=== PATIENT | female | born 1970 | race African-American/Black ===

== ENCOUNTER 2016-10-20 00:42 | Inpatient (IN) | payer OTHER ==
--- NOTE | 2016-10-20 01:30 | PDOC ---
[id number] No Limitations - History of Present Illness Initial Comments: 10/20/16 02:28 The patient is a 44 year old female with past medical history of diabetes and chronic back pain from injury who presents to the emergency department with complaints of an abscess on her left inner thigh. Patient states that the abscess is draining puss since 2 days ago and she presents today with worsening pain and swelling. Patient reports foul smell from the abscess. She denies any fever. <Alice Galvan - Last Filed: 10/20/16 04:04> <Pam Canseco - Last Filed: 10/20/16 05:46> - General Chief Complaint: Wound Stated Complaint: ABSCESS BOIL Time Seen by Provider: 10/20/16 01:27 Past History <Alice Galvan - Last Filed: 10/20/16 04:04> - Past Medical History Diabetes: Yes (iddm) Hypercholesterolemia: Yes - Psycho/Social/Smoking Cessation Hx Anxiety: No Suicidal Ideation: No Smoking Status: Yes Smoking History: Current every day smoker Have you smoked in the past 12 months: Yes Number of Cigarettes Smoked Daily: 10 Information on smoking cessation initiated: No 'Breaking Loose' booklet given: 03/16/16 Hx Alcohol Use: No Drug/Substance Use Hx: No Substance Use Type: None <Pam Canseoc - Last Filed: 10/20/16 05:46> - Past Medical History Allergies/Adverse Reactions: Allergies Allergy/AdvReac Type Severity Reaction Status Date / Time No Known Allergies Allergy Verified 10/20/16 01:03 Home Medications: Ambulatory Orders Metformin HCl 500 mg PO BID 04/18/15 Insulin Lispro [Humalog] 6 unit SQ DAILY PRN 10/20/16 Oxycodone HCl 30 mg PO BID 10/20/16 Trulicity 70 mg PO DAILY 10/20/16 Review of Systems - Review of Systems Able to Perform ROS?: Yes Comments:: 10/20/16 02:28 GENERAL/CONSTITUTIONAL: No fever or chills. No weakness. HEAD, EYES, EARS, NOSE AND THROAT: No change in vision. No ear pain or discharge. No sore throat. CARDIOVASCULAR: No chest pain or shortness of breath. RESPIRATORY: No cough, wheezing, or hemoptysis. GASTROINTESTINAL: No nausea, vomiting, diarrhea or constipation. GENITOURINARY: No dysuria, frequency, or change in urination. MUSCULOSKELETAL: No joint or muscle swelling or pain. No neck or back pain. SKIN: No rash NEUROLOGIC: No headache, vertigo, loss of consciousness, or change in strength/ sensation. ENDOCRINE: No increased thirst. No abnormal weight change. HEMATOLOGIC/LYMPHATIC: No anemia, easy bleeding, or history of blood clots. ALLERGIC/IMMUNOLOGIC: (+)abscess of the upper inner left thigh. No hives or skin allergy. <lAice Galvan - Last Filed: 10/20/16 04:04> *Physical Exam - Vital Signs Last Vital Signs Temp Pulse Resp BP Pulse Ox 99.0 F 95 H 14 106/60 100 10/20/16 02:13 10/20/16 01:04 10/20/16 01:04 10/20/16 01:04 10/20/16 01:04 - Physical Exam Comments: 10/20/16 02:29 GENERAL: Awake, alert, and fully oriented, in no acute distress HEAD: No signs of trauma EYES: PERRLA, EOMI, sclera anicteric, conjunctiva clear ENT: Auricles normal inspection, hearing grossly normal, nares patent, oropharynx clear without exudates. Moist mucosa NECK: Normal ROM, supple, no lymphadenopathy, JVD, or masses LUNGS: Breath sounds equal, clear to auscultation bilaterally. No wheezes, and no crackles HEART: Regular rate and rhythm, normal S1 and S2, no murmurs, rubs or gallops ABDOMEN: Soft, nontender, normoactive bowel sounds. No guarding, no rebound. No masses EXTREMITIES: Normal range of motion, no edema. No clubbing or cyanosis. No cords, erythema, or tenderness NEUROLOGICAL: Cranial nerves II through XII grossly intact. Normal speech, normal gait SKIN: (+)abscess on the left upper inner thigh 7in x 5 in, foul odor. Warm, Dry , normal turgor, no rashes noted. <Alice Galvan - Last Filed: 10/20/16 04:04> - Vital Signs Last Vital Signs Temp Pulse Resp BP Pulse Ox 95 H 14 106/60 100 10/20/16 01:04 10/20/16 01:04 10/20/16 01:04 10/20/16 01:04 <Pam Canseco - Last Filed: 10/20/16 05:46> ED Treatment Course - LABORATORY CBC & Chemistry Diagram: 10/20/16 02:55 10/20/16 02:55 <Alice Galvan - Last Filed: 10/20/16 04:04> - LABORATORY CBC & Chemistry Diagram: 10/20/16 02:55 10/20/16 02:55 <Pam Canseco - Last Filed: 10/20/16 05:46> Medical Decision Making - Medical Decision Making 10/20/16 03:51 Pt comes with a large abscess in her right inner thigh. She has no fever, but she is a diabetic and the abscess has 2 heads and one is draining pus. Together they are 7 inches x 5 inches total. She states that she always gets hidradenitis in her armpits, but never on her leg/groin. She has no other complaints. The abscess is large and is foul smelling. Abscess is too large for me to I+D in the ER. SHe will be treated with abx IV and she will be admitted to the hospitalist for an I+D to be done by surgery. 10/20/16 05:46 Pt will go for leg CTA to elucidate the dimensions and depth of the abscesses. From there pt will go straight to her bed on the med/surg floor. <Pma Canseco - Last Filed: 10/20/16 05:46> *DC/Admit/Observation/Transfer - Attestations Scribe Attestion: 10/20/16 02:30 Documentation prepared by FLORES Howell, acting as medical van driver for Pam Canseco MD. <Alice Galvan - Last Filed: 10/20/16 04:04> - Discharge Dispostion Admit: Yes <Pam Canseco - Last Filed: 10/20/16 05:46> Diagnosis at time of Disposition: Skin abscess, Diabetes - Referrals Referrals: Shanell Joseph [Primary Care Provider] -
[2016-10-20] MEDS ORDERED: PIPERACILLIN/TAZOB 4.5 GM 4.5 GM in DEXTROSE 5%-WATER - 100 ML IVPB ONE (02:28)
[2016-10-20] MEDS ORDERED: VANCOMYCIN 1,000 MG in DEXTROSE 5%-WATER - 250 ML IVPB ONE (02:29)
[2016-10-20] MEDS ORDERED: morphine CARPU-JECT 2 MG/1 ML DISP.SYRIN IVPUSH ONE (02:57)
[2016-10-20 03:00] LABS: BASOPHIL 0.5 % (0-2.0); EOSINOPHIL 1.3 % (0-4.5); MCH 30.8 pg (25.7-33.7); MCHC 32.3 g/dl (32.0-36.0); MEAN CELL VOLUME 95.5 fl (80-96); MEAN PLT VOLUME 9.5 fl (7.5-11.1); NEUTROPHILS 75.3 % (42.8-82.8); PLATELET COUNT 313 K/MM3 (134-434); RDW 16.4 % (11.6-15.6); WHITE BLOOD COUNT 11.9 K/mm3 (4.0-10.0)
[2016-10-20] MEDS ORDERED: morphine CARPU-JECT 2 MG/1 ML DISP.SYRIN ONE (03:03)
[2016-10-20 03:23] LABS: INR 1.21 (0.82-1.09); PROTHROMBIN TIME (PATIENT) 13.4 SEC (9.98-11.88)
[2016-10-20 03:31] LABS: ALBUMIN 3.4 g/dl (3.4-5.0); ALK PHOS 108 U/L (45-117); ANION GAP 13 (8-16); BILIRUBIN,TOTAL 0.3 mg/dL (0.2-1.0); CALCIUM 9.1 mg/dL (8.5-10.1); CO2 27 mmol/L (21-32); COCKROFT - GAULT 101.7875; CREATININE 0.9 mg/dL (0.55-1.02); GLUCOSE,RANDOM 222 mg/dL (74-106); SGOT/AST 18 U/L (15-37); SGPT/ALT 20 U/L (12-78); TOT PROT 7.4 g/dl (6.4-8.2)
[2016-10-20] MEDS ORDERED: SODIUM CHLORIDE 0.9% 500 ML INFUS.BAG IV ONE (03:56)
--- NOTE | 2016-10-20 04:06 | PN ---
Teaching Attending Note Name of Resident: Jairo Dunn ATTENDING PHYSICIAN STATEMENT I saw and evaluated the patient. I reviewed the resident's note and discussed the case with the resident. I agree with the resident's findings and plan as documented. SUBJECTIVE: 46 yo F with pmhx of diabetes, and chronic back pain who presents with abcess of left inner thigh. Notes abcess started draining 2 days ago. Stated she had chills yesterday. No Nausea or Vomiting. Had 2 episodes of diarrhea yesterday. OBJECTIVE: Physical: VS: Vital Signs Period Temp Pulse Resp BP Sys/Keller Pulse Ox Last 24 Hr 99.0 F 95 14 106/60 100 GEN: NAD, Resting in bed HEENT: NCAT, PERRL CARD: RRR S1, S2 RESP: CTAB ABD: BS X4, Mild suprapubic tenderness to palpation EXT: L thigh 5X6 abcess with tendeness and warmth on palpation, with open ulceration on inner groin. Surrounding erythema, pulses intact. CBCD WBC 11.9 K/mm3 (4.0-10.0) H 10/20/16 02:55 RBC 4.13 M/mm3 (3.60-5.2) 10/20/16 02:55 Hgb 12.7 GM/dL (10.7-15.3) 10/20/16 02:55 Hct 39.4 % (32.4-45.2) 10/20/16 02:55 MCV 95.5 fl (80-96) 10/20/16 02:55 MCHC 32.3 g/dl (32.0-36.0) 10/20/16 02:55 RDW 16.4 % (11.6-15.6) H 10/20/16 02:55 Plt Count 313 K/MM3 (134-434) 10/20/16 02:55 MPV 9.5 fl (7.5-11.1) 10/20/16 02:55 CMP Sodium 138 mmol/L (136-145) 10/20/16 02:55 Potassium 4.1 mmol/L (3.5-5.1) 10/20/16 02:55 Chloride 98 mmol/L (98-107) 10/20/16 02:55 Carbon Dioxide 27 mmol/L (21-32) 10/20/16 02:55 Anion Gap 13 (8-16) 10/20/16 02:55 BUN 15 mg/dL (7-18) 10/20/16 02:55 Creatinine 0.9 mg/dL (0.55-1.02) 10/20/16 02:55 Creat Clearance w eGFR > 60 (>60) 10/20/16 02:55 Random Glucose 222 mg/dL (74-106) H 10/20/16 02:55 Calcium 9.1 mg/dL (8.5-10.1) 10/20/16 02:55 Total Bilirubin 0.3 mg/dL (0.2-1.0) 10/20/16 02:55 AST 18 U/L (15-37) 10/20/16 02:55 ALT 20 U/L (12-78) 10/20/16 02:55 Alkaline Phosphatase 108 U/L (45-117) 10/20/16 02:55 Total Protein 7.4 g/dl (6.4-8.2) 10/20/16 02:55 Albumin 3.4 g/dl (3.4-5.0) 10/20/16 02:55 CT EXT: Pending ASSESSMENT AND PLAN: 46 F with hx of DM, Chronic low back pain who presents with L. Thigh abcess 1.) L. Thigh Abcess - S/P Vanco/Zosyn in ED - FU CT Results - ID consult - Sx consult for possible drainage - C/W abx - Wound/blood cx - Type and Screen - Coags 2.) DM - Chk. A1C - Hold Po meds - RAISS - FS Q 4h 4.) DVt Ppx - SCD Place in Med-Sx
[2016-10-20] MEDS ORDERED: INSULIN SLIDING SCALE (NOVOLOG) 1 VIAL SQ SCH (04:15)
[2016-10-20] MEDS ORDERED: INSULIN (NOVOLOG) ASPART 100 UNITS/ML 10ML VIAL ONE (04:43)
--- NOTE | 2016-10-20 04:52 | HP ---
CHIEF COMPLAINT: Draining right inner thigh abscess PCP: Susy Prescott HISTORY OF PRESENT ILLNESS: 46 year old male with pmh of uncontrolled diabetes, recurrent skin abscesses presented to ED with right inner thigh abscess for 5 days that have been worsening and draining or the past 2 days. The abscess sis very painful, 10/10, sharp, worsened with movement, improves with morphine. Pt complained of discomfort urinating and she unable to bend down because of abscess. Pt also complaine dof difficulty walking because of the abscess. Pt does not know that the abscess started, no pimple, no new lotion, soap, no shaving. Pt also complained of fever and chills at home, no n/v, no dizziness or confusion. No right lower ext numbness, tingling, weakness or swelling. ER course was notable for: (1) WBC 11.9 (2) Vancomycin, Zosyn Recent Travel: none PAST MEDICAL HISTORY: uncontrolled diabetes, recurrent skin abscesses, UTI, Chronic back pain PAST SURGICAL HISTORY: C- section Social History: Smoking: smoked for 25 years, 1/3 of pack per day Alcohol: denies Drugs: denies Family History: Denies Allergies No Known Allergies Allergy (Verified 10/20/16 01:03) HOME MEDICATIONS: Home Medications Medication Instructions Recorded Metformin HCl 500 mg PO BID 04/18/15 Insulin Lispro [Humalog] 6 unit SQ DAILY PRN 10/20/16 Oxycodone HCl 30 mg PO BID 10/20/16 Trulicity 70 mg PO DAILY 10/20/16 REVIEW OF SYSTEMS CONSTITUTIONAL: fever, chills Absent: fdiaphoresis, generalized weakness, malaise, loss of appetite, weight change HEENT: Absent: rhinorrhea, nasal congestion, throat pain, throat swelling, difficulty swallowing, mouth swelling, ear pain, eye pain, visual changes CARDIOVASCULAR: Absent: chest pain, syncope, palpitations, irregular heart rate, lightheadedness , peripheral edema RESPIRATORY: Absent: cough, shortness of breath, dyspnea with exertion, orthopnea, wheezing, stridor, hemoptysis GASTROINTESTINAL: Absent: abdominal pain, abdominal distension, nausea, vomiting, diarrhea, constipation, melena, hematochezia GENITOURINARY: some discomfort and incontinence rt to pain from abscess Absent: dysuria, frequency, urgency, hesitancy, hematuria, flank pain, genital pain MUSCULOSKELETAL: Absent: myalgia, arthralgia, joint swelling, back pain, neck pain SKIN: right thigh draining abscess and pain Absent: rash, itching, pallor HEMATOLOGIC/IMMUNOLOGIC: Absent: easy bleeding, easy bruising, lymphadenopathy, frequent infections ENDOCRINE: Absent: unexplained weight gain, unexplained weight loss, heat intolerance, cold intolerance NEUROLOGIC: Absent: headache, focal weakness or paresthesias, dizziness, unsteady gait, seizure, mental status changes, bladder or bowel incontinence PSYCHIATRIC: Absent: anxiety, depression, suicidal or homicidal ideation, hallucinations. PHYSICAL EXAMINATION Vital Signs - 24 hr 10/20/16 10/20/16 01:04 02:13 Temperature 99.0 F Pulse Rate 95 H Respiratory 14 Rate Blood Pressure 106/60 O2 Sat by Pulse 100 Oximetry (%) GENERAL: Awake, alert, and fully oriented, in no acute distress. HEAD: Normal with no signs of trauma. EYES: Pupils equal, round and reactive to light, extraocular movements intact, sclera anicteric, conjunctiva clear. No lid lag. EARS, NOSE, THROAT: Ears normal, nares patent, oropharynx clear without exudates. Moist mucous membranes. NECK: Normal range of motion, supple without lymphadenopathy, JVD, or masses. LUNGS: Breath sounds equal, clear to auscultation bilaterally. No wheezes, and no crackles. No accessory muscle use. HEART: Regular rate and rhythm, normal S1 and S2 without murmur, rub or gallop. ABDOMEN: Soft, supra pubic tenderness, not distended, normoactive bowel sounds, no guarding, no rebound, no masses. No hepatomegaly or splenomegaly. MUSCULOSKELETAL: Normal range of motion at all joints. No bony deformities or tenderness. No CVA tenderness. UPPER EXTREMITIES: 2+ pulses, warm, well-perfused. No cyanosis. No clubbing. No peripheral edema. LOWER EXTREMITIES: 2+ pulses, warm, well-perfused. No calf tenderness. No peripheral edema. NEUROLOGICAL: Cranial nerves II-XII intact. Normal speech. Normal gait. PSYCHIATRIC: Cooperative. Good eye contact. Appropriate mood and affect. SKIN: Warm, dry, normal turgor, no rashes or lesions noted, normal capillary refill. right inner thight with a 5*6 abscess draining serosanguinous fluid with surrounding area of erythema, tenderness and induration. Laboratory Results - last 24 hr 10/20/16 10/20/16 10/20/16 02:47 02:55 02:55 WBC 11.9 H RBC 4.13 Hgb 12.7 Hct 39.4 MCV 95.5 MCHC 32.3 RDW 16.4 H Plt Count 313 MPV 9.5 Neutrophils % 75.3 Lymphocytes % 15.3 Monocytes % 7.6 Eosinophils % 1.3 Basophils % 0.5 INR 1.21 H PTT (Actin FS) Sodium 138 Potassium 4.1 Chloride 98 Carbon Dioxide 27 Anion Gap 13 BUN 15 Creatinine 0.9 Creat Clearance w eGFR > 60 Random Glucose 222 H Calcium 9.1 Total Bilirubin 0.3 AST 18 ALT 20 Alkaline Phosphatase 108 Total Protein 7.4 Albumin 3.4 10/20/16 02:55 WBC RBC Hgb Hct MCV MCHC RDW Plt Count MPV Neutrophils % Lymphocytes % Monocytes % Eosinophils % Basophils % INR PTT (Actin FS) 30.4 Sodium Potassium Chloride Carbon Dioxide Anion Gap BUN Creatinine Creat Clearance w eGFR Random Glucose Calcium Total Bilirubin AST ALT Alkaline Phosphatase Total Protein Albumin CBC, BMP 10/20/16 02:55 10/20/16 02:55 ASSESSMENT/PLAN: 46 year old male with pmh of uncontrolled diabetes, recurrent skin abscesses presented to ED with right inner thigh abscess for 5 days that have been worsening and draining or the past 2 days Sepsis from Right thigh soft tissue draining abscess complained of subjective fever and chills at home WBC 11.9, HR 95 and source of infection CBC Lactic acid ESR Type and screen wound culture Blood culture f/u CT lower ext continue vanco IV continue Zosyn IV Morphine for pain Zofran PRN ID consult Dr Gonzales Surgery consult R/o UTI urinary urgency, discomfort, suprapubic tenderness UA Uncontrolled Diabetes BGM ACHS HgbA1C Novolog sliding scale FEN Fluid: NS at 100ml/h Electrolytes: chemistry Nutrition: NPO DVT prophylaxis SCD Disposition: admit to [facility] Visit type - Emergency Visit Emergency Visit: Yes Care time: The patient presented to the Emergency Department on the above date and was hospitalized for further evaluation of their emergent condition. - New Patient This patient is new to me today: Yes Date on this admission: 10/20/16 - Critical Care Critical Care patient: No
[2016-10-20] MEDS ORDERED: SODIUM CHLORIDE 1,000 ML IV SCH (05:00)
[2016-10-20] MEDS ORDERED: morphine CARPU-JECT 4 MG/1 ML DISP.SYRIN IVPUSH PRN (05:34)
[2016-10-20 07:07] VITALS: BMI 31.6
[2016-10-20] MEDS: INSULIN SLIDING SCALE (NOVOLOG) 1 VIAL SQ SCH ×5 (08:26→22:13)
[2016-10-20] MEDS ORDERED: morphine CARPU-JECT 2 MG/1 ML DISP.SYRIN IVPUSH PRN ×2 (09:20→12:37)
--- NOTE | 2016-10-20 10:24 | PN ---
Progress Note, Physician Chief Complaint: ID Full note dictated - Current Medication List Current Medications: Active Medications Sodium Chloride (Normal Saline -) 1,000 mls @ 100 mls/hr IV ASDIR CECIL Last Admin: 10/20/16 09:28 Dose: 100 mls/hr Insulin Aspart (Novolog Vial Sliding Scale -) 1 vial SQ Q4HPO [facility] PRN Reason: Protocol Last Admin: 10/20/16 08:26 Dose: Not Given Morphine Sulfate (Morphine Injection -) 2 mg IVPUSH Q4H PRN PRN Reason: PAIN Piperacillin Sod/Tazobactam Sod (Zosyn 3.375gm Ivpb (Pre-Docked)) 3.375 gm IVPB ONCE ONE Stop: 10/20/16 12:01 - Objective Vital Signs: Vital Signs Temperature 99 F 10/20/16 06:55 Pulse Rate 84 10/20/16 06:55 Respiratory Rate 20 10/20/16 06:55 Blood Pressure 149/69 10/20/16 06:55 O2 Sat by Pulse Oximetry (%) 97 10/20/16 05:28 Integumentary: Yes: Other (Perineal collection draining pus painful to touch) Labs: INR, PTT INR 1.21 (0.82-1.09) H 10/20/16 02:47 Problem List - Problems (1) Diabetes Code(s): E11.9 - TYPE 2 DIABETES MELLITUS WITHOUT COMPLICATIONS (2) Skin abscess Code(s): L02.91 - CUTANEOUS ABSCESS, UNSPECIFIED (3) Hydradenitis Code(s): L73.2 - HIDRADENITIS SUPPURATIVA Assessment/Plan Microbiology Laboratory Tests 10/20/16 10/20/16 10/20/16 02:55 02:55 08:00 WBC 11.9 H RBC 4.13 Plt Count 313 ESR Pending Creatinine 0.9 Assessment Thigh abscess draining pus Dm Hydradenitis Plan I sent wound c/ s now Vanco Zosyn CRP Surgicl consult HIV testing Janet CARBALLO
--- NOTE | 2016-10-20 11:32 | CONS ---
DATE OF CONSULTATION: HISTORY: This is a 46-year-old diabetic female who I am asked to see for an abscess of her left medial thigh. This has been present for about 5 days, and she has no idea how it evolved. She did give a history of having uncontrolled diabetes as well as axillary hidradenitis several years ago. She complained of fever and chills at home but here had no significant fever. Her admitting white count was 11.9. She lives with her son and states that she was HIV tested negative several years ago. She does not use drugs and has no other significant past medical history other than her diabetes and section. MEDICATIONS: At home, metformin, insulin, oxycodone, Trulicity. ALLERGIES: None known. SOCIAL HISTORY: Smoker 1/3 of a pack per day. Denies substance abuse. FAMILY HISTORY: Reviewed. Noncontributory. REVIEW OF SYSTEMS: Respiratory: No cough, shortness of breath, history of asthma. Cardiac: No chest pain, palpitations, history of murmur. Gastrointestinal: No abdominal pain, nausea, vomiting, diarrhea. Genitourinary: No dysuria, hematuria, urinary frequency. PHYSICAL EXAMINATION: General: She is a bjuj-exolsjhjl-fqcvubuld woman in no acute distress. Alert and oriented. Vital Signs: Temperature 99, pulse 84, blood pressure 150/70, respirations 20. Neck: Supple. No adenopathy. Lungs: Clear to percussion and auscultation. Heart: S1, S2. Regular rhythm without audible murmur. Abdomen: Soft and nontender without hepatosplenomegaly. Extremities: Reveals a fluctuant abscess in the left medial thigh, which is exquisitely tender to touch but appeared to be draining copiously when manual pressure applied. DIAGNOSTIC DATA: The white count was 11.9, hemoglobin 12.7, platelets 313. ESR pending. Glucose 222, BUN 15, creatinine 0.9. test negative. Two sets of blood cultures obtained, currently pending. ASSESSMENT: A 46-year-old female with a history of hidradenitis in the axilla presents with a left medial thigh abscess with purulent drainage and cellulitis. Possibilities include staphylococcus, streptococcus as well as gram-negative and anaerobic organisms. We will give her vancomycin and Zosyn empirically. Awake surgical consultation with Dr. Tavarez. Obtain an HIV test 4th generation. ESR and CRP. DIANA FOSTER M.D. [id number]
[2016-10-20] MEDS ORDERED: PIPERACILLIN/TAZOB 3.375 GM/50 ML PRE-DOCKED IVPB ONE ×2 (12:00)
[2016-10-20 12:13] LABS: HIV 1 & 2 AB NEGATIVE; HIV 1 AGp24 NEGATIVE
--- NOTE | 2016-10-20 12:38 | PN ---
Teaching Attending Note Name of Resident: Ike Lema ATTENDING PHYSICIAN STATEMENT I saw and evaluated the patient. I reviewed the resident's note and discussed the case with the resident. I agree with the resident's findings and plan as documented. SUBJECTIVE:c/o excruciating pain in R thigh that started 5 days ago. admits to shaving but does not recall any abrasion to the skin, ingrown hair or pimple. noted some drainage yellowish fluid. has hx of frequent axillary abscesses which she never got medically treated and they self resolved with warm compresses. pain is excruciating with only mild relief. difficulty ambulating due to the pain. denies CP, SOB,fever, chills, N/V/C/D OBJECTIVE: Last Vital Signs Temp Pulse Resp BP Pulse Ox 99 F 84 20 149/69 97 10/20/16 06:55 10/20/16 06:55 10/20/16 06:55 10/20/16 06:55 10/20/16 05:28 General NAD CV S1 S2 RRR no murmur/rub/gallop Lungs CTA B/L no wheezing/rales/rhonchi Extremities L upper thigh with large flucuating mass, exquisitely tender. bandage intact. refused removal of bandage ASSESSMENT AND PLAN: 46yo F with PMH DM presented to the ER and was admitted for abscess of the L thigh 1. L thigh abscess- afebrile. CT done to evaluate for abscess. surgery and ID consulted. wound Cx obtained today after initiation of abx in the ER. started on Vanco/zosyn. f/u Cx. pain control. will increase morphine to 4mg. d/c iVF 2. DM- uncontrolled. A1c 10.8. as per pt last A1c was in the 's. will confirm home medications. instructed pt to have some one in bring in trulicity as is non-formulary 3. DVT ppx- EAM
[2016-10-20 13:24] LABS: URINE APPEARANCE CLEAR; URINE BILIRUBIN NEGATIVE (NEGATIVE); URINE COLOR RED; URINE GLUCOSE (UA) 2+ (NEGATIVE); URINE KETONE NEGATIVE (NEGATIVE); URINE NITRITE NEGATIVE (NEGATIVE); URINE UROBILINOGEN NEGATIVE E.U./dl (0.2-1.0)
[2016-10-20 13:37] LABS: URINE BLOOD 3+ (NEGATIVE); URINE PROTEIN 2+ (NEGATIVE)
[2016-10-20 13:38] LABS: URINE LEUK ESTERASE TRACE (NEGATIVE)
[2016-10-20 13:42] LABS: URINE RBC 1258 /hpf (0-3); URINE WBC 8 /hpf (3-5)
--- NOTE | 2016-10-20 14:01 | EKG ---
Test Reason : Blood Pressure : / mmHG Vent. Rate : 088 BPM Atrial Rate : 088 BPM P-R Int : 134 ms QRS Dur : 078 ms QT Int : 360 ms P-R-T Axes : 053 044 044 degrees QTc Int : 435 ms NORMAL SINUS RHYTHM NORMAL ECG NO PREVIOUS ECGS AVAILABLE Confirmed by SHA AVITIA MD ([id number]) on 10/20/2016 2:01:17 PM Referred By: Confirmed By:SHA AVITIA MD
--- NOTE | 2016-10-20 16:30 | PN ---
Physical Exam: SUBJECTIVE: Patient stated pain from abscess still persists and with limited range of motion of R leg. Wants to eat breakfast. Denies fever, chills, chest pain, shortness of breath, urinary or bowel symptoms. OBJECTIVE: Vital Signs Period Temp Pulse Resp BP Sys/Keller Pulse Ox Last 24 Hr 98.7 F-99.0 F 80-84 18-20 100-149/62-69 97-99 GENERAL: AAO x 3, sleeping, arousable, able to speak full sentences not in any distress NECK: No JVD, mass or lymphadenopathy LUNGS: CTAB HEART: RRR, S1, S2 without murmur, rub or gallop. ABDOMEN: Soft, suprapubic tenderness, nondistended, normoactive bowel sounds, no guarding, no rebound, EXTREMITIES: 2+ pulses, no edema. L inner thigh fluid like, mobile, soft abscess covered by dressing, no erythema, tender to touch, no crepitus, induration, or mass inside the abscess felt. CBCD WBC 11.9 K/mm3 (4.0-10.0) H 10/20/16 02:55 RBC 4.13 M/mm3 (3.60-5.2) 10/20/16 02:55 Hgb 12.7 GM/dL (10.7-15.3) 10/20/16 02:55 Hct 39.4 % (32.4-45.2) 10/20/16 02:55 MCV 95.5 fl (80-96) 10/20/16 02:55 MCHC 32.3 g/dl (32.0-36.0) 10/20/16 02:55 RDW 16.4 % (11.6-15.6) H 10/20/16 02:55 Plt Count 313 K/MM3 (134-434) 10/20/16 02:55 MPV 9.5 fl (7.5-11.1) 10/20/16 02:55 CMP Sodium 138 mmol/L (136-145) 10/20/16 02:55 Potassium 4.1 mmol/L (3.5-5.1) 10/20/16 02:55 Chloride 98 mmol/L (98-107) 10/20/16 02:55 Carbon Dioxide 27 mmol/L (21-32) 10/20/16 02:55 Anion Gap 13 (8-16) 10/20/16 02:55 BUN 15 mg/dL (7-18) 10/20/16 02:55 Creatinine 0.9 mg/dL (0.55-1.02) 10/20/16 02:55 Creat Clearance w eGFR > 60 (>60) 10/20/16 02:55 Calcium 9.1 mg/dL (8.5-10.1) 10/20/16 02:55 Total Bilirubin 0.3 mg/dL (0.2-1.0) 10/20/16 02:55 AST 18 U/L (15-37) 10/20/16 02:55 ALT 20 U/L (12-78) 10/20/16 02:55 Alkaline Phosphatase 108 U/L (45-117) 10/20/16 02:55 Total Protein 7.4 g/dl (6.4-8.2) 10/20/16 02:55 Albumin 3.4 g/dl (3.4-5.0) 10/20/16 02:55 Active Medications Generic Name Dose Route Start Last Admin Trade Name Freq PRN Reason Stop Dose Admin Duloxetine HCl 60 mg 10/21/16 10:00 Cymbalta - PO DAILY [facility] Gabapentin 800 mg 10/20/16 22:00 Neurontin - PO BID CECIL Vancomycin HCl 1,250 mg/ 250 mls @ 166.667 mls/hr 10/20/16 22:00 Dextrose IVPB BID CECIL Protocol Piperacillin Sod/Tazobactam Sod 100 mls @ 200 mls/hr 10/20/16 18:00 Zosyn 4.5gm Ivpb (Pre-Docked) IVPB Q8H-IV CECIL Protocol Insulin Aspart 1 vial 10/20/16 05:06 10/20/16 15:42 Novolog Vial Sliding Scale - SQ Not Given Q4HPO CECIL Protocol Losartan Potassium 25 mg 10/21/16 10:00 Cozaar - PO DAILY CECIL Morphine Sulfate 4 mg 10/20/16 12:37 Morphine Injection - IVPUSH Q4H PRN PAIN Non-Formulary Medication 20 mg 10/20/16 22:00 Simvastatin PO HS CECIL Trazodone HCl 50 mg 10/20/16 22:00 Desyrel - PO HS CECIL IMAGING CTA of L leg on 10/20: mid thigh cellulitis with developing abscess CXR on 10/20: no acute pathology ASSESSMENT/PLAN: 46 yo F admitted to med-surg for L thigh cellulitis with abscess. Cellulitis with abscess, L medial thigh - Bedside drainage scheduled - Cont. vanco and zosyn (day 1) pending wound cultures - Morphine 2mg Q4H for pain control NIDDM - Cont. BGM and NSS FEN - IVF not indicated - Normal lytes - NPO for bedside drainage Prophylaxis - DVT: SCDs - GI: not indicated Disposition - Cont. to monitor on Med-Surg Code status - Full Visit type - Emergency Visit Emergency Visit: No - New Patient This patient is new to me today: Yes Date on this admission: 10/20/16 - Critical Care Critical Care patient: No - Discharge Referral Referred to [facility] Med [facility] No
[2016-10-20] MEDS ORDERED: LIDOCAINE 2%/EPINEPHRINE 1:100000 (50 ML MD VIAL) NR ONE (16:45)
[2016-10-20] MEDS: morphine CARPU-JECT 2 MG/1 ML DISP.SYRIN IVPUSH PRN ×2 (17:21→22:09)
[2016-10-20] MEDS: PIPERACILLIN/TAZOB 4.5 GM 100 ML IVPB SCH (17:35)
--- NOTE | 2016-10-20 17:49 | PN ---
Progress Note (short form) - Note Progress Note: surgery pt seen and examined. full consult and procedure note dictated. 46 obese female with multiple previous skin infection, developed left inner thigh abscess. I&d done with 30 ml aneorobic pus expressed. still remaining indurated tissue. pressure dressing placed. Plan- cont abx per id. possible d/c 24-48 hours if improved. shower with soap and water in the wound bid and apply dry dressing until healed f/u prn [phone]
--- NOTE | 2016-10-20 19:10 | CONS ---
DATE OF CONSULTATION: 10/20/2016 DATE OF PROCEDURE: 10/20/2016 CONSULTATION AND PROCEDURE NOTE REASON FOR CONSULTATION AND PROCEDURE: A left inner thigh abscess. This is a consultation of an inpatient done from the [address] [place] [address]. BRIEF HISTORY: This is a 46-year-old female, obese, with multiple previous skin infections, was admitted to [facility] with an abscess of her inner left thigh. She is a known diabetic and was admitted, and request was made for surgical evaluation incision and drainage. She denies fever. PAST MEDICAL HISTORY: Significant for diabetes, skin abscesses, urinary tract infections, back pain, and obesity. SOCIAL HISTORY: Positive for tobacco, she has been encouraged to quit, and is negative for alcohol. FAMILY HISTORY: Negative for malignancy in the immediate family. ALLERGIES: No known drug allergies. HOME MEDICATIONS: Include metformin and Humalog. REVIEW OF SYSTEMS: General: Denies fatigue or malaise. Cardiac: Denies chest pain or palpitations. Respiratory: Denies shortness of breath, wheeze. Gastrointestinal: No nausea or vomiting. Genitourinary: Denies dysuria. Musculoskeletal: Denies joint pain, joint swelling. Psychiatric: Denies anxiety, depression, or hearing voices. PHYSICAL EXAMINATION: General: This is an obese 46-year-old female in no distress. Vital signs: She is afebrile. Her vital signs are stable. HEENT: Head is normocephalic. Sclerae anicteric. Neck: Supple. Chest: Clear. Abdomen: Soft. Extremities: No edema. On exam of her inner left thigh at its junction with the groin, she has a punctate opening with anaerobic smelling pus coming out. There is an area of induration approximately 7 cm x 5 cm lateral to this site. ASSESSMENT: A 46-year-old female with a left inner thigh abscess, will perform further incision and drainage. PROCEDURE: Incision and drainage of left inner thigh abscess. SURGEON: Denton Kelly D.O. TAX LAWYER: None. ANESTHESIA: Local. SPECIMEN: None. BLOOD LOSS: Minimal. COMPLICATIONS: None. POSITION: Supine position in the left frogleg. DESCRIPTION OF PROCEDURE: The patient is placed in the proper position. The left inner thigh area is prepped and draped in sterile fashion. 20 mL of lidocaine with epinephrine is used to anesthetize the overlying skin. An incision was made along the length of the thigh over the area of fluctuance, approximately 3 cm in length. I cruciate incision is also made along the groin crease. Approximately 30 mL of anaerobic smelling borges pus is expressed. Abscess cavity is probed. There are no pockets that are missed. At this point, pressure dressing is placed. PLAN: The patient will shower twice a day with soap and water going directly into the wound and apply a dry dressing. She will continue antibiotics for the ID service. I expect her to be able to be safely discharged the next 24 to 48 hours if she experiences the expected rapid improvement. She still had some areas of induration and would benefit from at least a 1 week course of antibiotics. Patient can also consider applying bacitracin to the wound, which would increase wound healing. She should shower twice a day until her wound heals, which I would expect to take 2-3 weeks. She can follow with me on an as-needed basis. DO ISAI BRUNSON/[id number] MTDCharley
[2016-10-20] MEDS ORDERED: PT OWN MED DRAWER 7, Y5N ONE (21:28)
[2016-10-20] MEDS ORDERED: PATIENT'S OWN MEDICATION (NON-FORMULARY) (Simvastatin 20 MG) PO SCH (22:00)
[2016-10-20] MEDS: traZODone HCL 50 MG TABLET (FP) PO SCH (22:06)
[2016-10-20] MEDS: ATORVASTATIN CA 10 MG TABLET (FP) PO SCH (22:06)
[2016-10-20] MEDS: BACITRACIN 30 GM TUBE TOPICAL OINTMENT TP SCH (22:07)
[2016-10-20] MEDS: GABAPENTIN 400 MG CAPSULE (FP) PO SCH (22:08)
[2016-10-20] MEDS: VANCOMYCIN 1,250 MG in DEXTROSE 5%-WATER - 250 ML IVPB SCH (22:09)
[2016-10-21] MEDS: PIPERACILLIN/TAZOB 4.5 GM 100 ML IVPB SCH ×2 (01:11→10:49)
[2016-10-21] MEDS: INSULIN SLIDING SCALE (NOVOLOG) 1 VIAL SQ SCH ×4 (06:05→22:13)
[2016-10-21 08:28] LABS: MCH 31.5 pg (25.7-33.7); MCHC 32.8 g/dl (32.0-36.0); MEAN CELL VOLUME 95.9 fl (80-96); MEAN PLT VOLUME 9.5 fl (7.5-11.1); PLATELET COUNT 275 K/MM3 (134-434); RDW 16.2 % (11.6-15.6); WHITE BLOOD COUNT 7.6 K/mm3 (4.0-10.0)
[2016-10-21] MEDS ORDERED: PT OWN MED DRAWER 7, Y5N ONE (10:47)
[2016-10-21] MEDS: DULoxetine HCL 30 MG CAPSULE.DR (FP) PO SCH ×2 (10:49→10:59)
[2016-10-21] MEDS: BACITRACIN 30 GM TUBE TOPICAL OINTMENT TP SCH ×2 (10:49→22:08)
[2016-10-21] MEDS: GABAPENTIN 400 MG CAPSULE (FP) PO SCH ×3 (10:49→22:07)
[2016-10-21] MEDS: LOSARTAN POTASSIUM 25 MG TABLET PO SCH ×2 (10:49→10:59)
--- NOTE | 2016-10-21 11:22 | PN ---
Teaching Attending Note Name of Resident: Ike Lema ATTENDING PHYSICIAN STATEMENT I saw and evaluated the patient. I reviewed the resident's note and discussed the case with the resident. I agree with the resident's findings and plan as documented. SUBJECTIVE: Patient complains of soreness at I&D site of left thigh. OBJECTIVE: Vital Signs Period Temp Pulse Resp BP Sys/Keller Pulse Ox Last 24 Hr 98.2 F-98.7 F 73-82 20-20 104-111/60-67 99 HEART: S1 S2, RRR LUNGS: CLEAR ABDOMEN: Obese, soft, non-tender, non-distended, normal BS EXTREMITIES: No edema, dressing on left medial thigh ASSESSMENT AND PLAN: This is a 46-year-old woman with a history of type 2 DM, chronic back pain and obesity who presented to the ER with a draining abscess of her left thigh. 1. Left thigh abscess - s/p I&D 10/20 - Continue Zosyn, Vancomycin - Follow-up culture 2. Type 2 DM, uncontrolled - Continue Novolog sliding scale 3. Chronic back pain
--- NOTE | 2016-10-21 11:26 | PN ---
Physical Exam: SUBJECTIVE: Patient stated she underwent bedside I&D yesterday after and pain has been under control but the analgesic effect wears off quicker than she'd hope for. Denies fever, chills, chest pain, shortness of breath, urinary or bowel symptoms. OBJECTIVE: Vital Signs Period Temp Pulse Resp BP Sys/Keller Pulse Ox Last 24 Hr 98.2 F-98.7 F 73-82 20-20 104-111/60-67 99 GENERAL: AAO x 3, sleeping, arousable, able to speak full sentences not in any distress NECK: No JVD, mass or lymphadenopathy LUNGS: CTAB HEART: RRR, S1, S2 without murmur, rub or gallop. ABDOMEN: Soft, nontender, nondistended, normoactive bowel sounds, no guarding, no rebound, EXTREMITIES: 2+ pulses, no edema. L inner thigh abscess decreased in size and covered by dressing, no erythema, slightly tender to touch, no crepitus, induration, or mass inside the abscess felt. CBCD WBC 7.6 K/mm3 (4.0-10.0) D 10/21/16 06:30 RBC 3.39 M/mm3 (3.60-5.2) L 10/21/16 06:30 Hgb 10.7 GM/dL (10.7-15.3) D 10/21/16 06:30 Hct 32.5 % (32.4-45.2) D 10/21/16 06:30 MCV 95.9 fl (80-96) 10/21/16 06:30 MCHC 32.8 g/dl (32.0-36.0) 10/21/16 06:30 RDW 16.2 % (11.6-15.6) H 10/21/16 06:30 Plt Count 275 K/MM3 (134-434) 10/21/16 06:30 MPV 9.5 fl (7.5-11.1) 10/21/16 06:30 Active Medications Generic Name Dose Route Start Last Admin Trade Name Freq PRN Reason Stop Dose Admin Atorvastatin Calcium 10 mg 10/20/16 22:00 10/20/16 22:06 Lipitor - PO 10 mg HS CECIL Administration Bacitracin 1 applic 10/20/16 22:00 10/21/16 10:49 Bacitracin - TP 1 applic BID CECIL Administration Duloxetine HCl 60 mg 10/21/16 10:00 10/21/16 10:59 Cymbalta - PO Not Given DAILY [facility] Gabapentin 800 mg 10/20/16 22:00 10/21/16 10:59 Neurontin - PO Not Given BID CECIL Vancomycin HCl 1,250 mg/ 250 mls @ 166.667 mls/hr 10/20/16 22:00 10/20/16 22:09 Dextrose IVPB 166.667 mls/hr BID CECIL Administration Protocol Piperacillin Sod/Tazobactam Sod 100 mls @ 200 mls/hr 10/20/16 18:00 10/21/16 10 :49 Zosyn 4.5gm Ivpb (Pre-Docked) IVPB 200 mls/hr Q8H-IV CECIL Administration Protocol Insulin Aspart 1 vial 10/20/16 16:30 10/21/16 06:05 Novolog Vial Sliding Scale - SQ 4 units ACHS CECIL Administration Protocol Losartan Potassium 25 mg 10/21/16 10:00 10/21/16 10:59 Cozaar - PO Not Given DAILY [facility] Morphine Sulfate 2 mg 10/20/16 16:20 10/20/16 22:09 Morphine Injection - IVPUSH 2 mg Q4H PRN Administration PAIN Trazodone HCl 50 mg 10/20/16 22:00 10/20/16 22:06 Desyrel - PO 50 mg HS CECIL Administration IMAGING CTA of L leg on 10/20: mid thigh cellulitis with developing abscess CXR on 10/20: no acute pathology ASSESSMENT/PLAN: 46 yo F admitted to med-surg for L thigh cellulitis with abscess. Cellulitis with abscess, L medial thigh - s/p bedside I&D day 2 - Afrebile with normal WBC - Cont. vanco and zosyn (day 2) pending wound cultures - Morphine 2mg Q4H for pain control Acute decrease in hemoglobin - 2 g drop in 24 hours - Patient is menstruating - Denies melena and hematuria - Cont. to monitor H&H NIDDM - Cont. BGM and NSS FEN - IVF not indicated - Normal lytes - NPO for bedside drainage Prophylaxis - DVT: SCDs - GI: not indicated Disposition - Cont. to monitor on Med-Surg - Awaiting wound cultures to adjust abx regiment Code status - Full Visit type - Emergency Visit Emergency Visit: No - New Patient This patient is new to me today: No - Critical Care Critical Care patient: No
[2016-10-21] MEDS: VANCOMYCIN 1,250 MG in DEXTROSE 5%-WATER - 250 ML IVPB SCH ×2 (11:52→22:07)
--- NOTE | 2016-10-21 12:27 | PN ---
Progress Note (short form) - Note Progress Note: surgery pt seen and examined. feels well. pain free. showered. wound covered. no fever. Plan- surgically stable for d/c tomorrow per medical plan.
--- NOTE | 2016-10-21 13:52 | PN ---
Progress Note (short form) - Note Progress Note: s/p incision and drainage yesterday no antibiotics at home prior to admisison Vital Signs Period Temp Pulse Resp BP Sys/Keller Pulse Ox Last 24 Hr 98.2 F-98.7 F 73-82 20-20 104-111/60-67 99 cor-rrr lungs clear abd soft,nt ext inner thigh wound with purulent drainage, +induration CBC, BMP 10/21/16 06:30 10/20/16 02:55 Microbiology 10/20/16 10:47 Thigh - Left Wound Culture - Preliminary Staphylococcus Coagulase Neg Staphylococcus Coagulase Neg#2 10/20/16 02:47 Blood - Peripheral Venous Blood Culture - Preliminary NO GROWTH OBTAINED AFTER 24 HOURS, INCUBATION TO CONTINUE FOR 4 DAYS. 10/20/16 02:50 Blood - Peripheral Venous Blood Culture - Preliminary NO GROWTH OBTAINED AFTER 24 HOURS, INCUBATION TO CONTINUE FOR 4 DAYS. a/p thigh abscess history of hidradentits diabetes f/u cultures local wound care repeat cultures- ?SCN d/c zosyn continue vancomycin add flagyl for possible anaerobes while culture is pending augmentin may be good choice for home antibiotics
[2016-10-21] MEDS: metroNIDAZOLE 250 MG TABLET PO SCH ×2 (16:25→22:07)
[2016-10-21] MEDS: traZODone HCL 50 MG TABLET (FP) PO SCH (22:07)
[2016-10-21] MEDS: ATORVASTATIN CA 10 MG TABLET (FP) PO SCH (22:07)
[2016-10-21] MEDS: morphine CARPU-JECT 2 MG/1 ML DISP.SYRIN IVPUSH PRN (22:21)
[2016-10-22] MEDS: INSULIN SLIDING SCALE (NOVOLOG) 1 VIAL SQ SCH ×2 (06:24→11:56)
[2016-10-22] MEDS: metroNIDAZOLE 250 MG TABLET PO SCH ×2 (06:25→14:34)
[2016-10-22] MEDS: morphine CARPU-JECT 2 MG/1 ML DISP.SYRIN IVPUSH PRN ×2 (06:30→12:20)
[2016-10-22 07:59] LABS: MCH 30.9 pg (25.7-33.7); MCHC 32.6 g/dl (32.0-36.0); MEAN CELL VOLUME 94.7 fl (80-96); MEAN PLT VOLUME 9.2 fl (7.5-11.1); PLATELET COUNT 298 K/MM3 (134-434); RDW 15.9 % (11.6-15.6)
--- NOTE | 2016-10-22 08:36 | PN ---
Progress Note, Physician Chief Complaint: ID Vancomycin - Current Medication List Current Medications: Active Medications Atorvastatin Calcium (Lipitor -) 10 mg PO HS [facility] Last Admin: 10/21/16 22:07 Dose: 10 mg Bacitracin (Bacitracin -) 1 applic TP BID [facility] Last Admin: 10/21/16 22:08 Dose: 1 applic Duloxetine HCl (Cymbalta -) 60 mg PO DAILY [facility] Last Admin: 10/21/16 10:59 Dose: Not Given Gabapentin (Neurontin -) 800 mg PO BID [facility] Last Admin: 10/21/16 22:07 Dose: Not Given Vancomycin HCl 1,250 mg/ (Dextrose) 250 mls @ 166.667 mls/hr IVPB BID [facility] PRN Reason: Protocol Last Admin: 10/21/16 22:07 Dose: 166.667 mls/hr Insulin Aspart (Novolog Vial Sliding Scale -) 1 vial SQ ACHS [facility] PRN Reason: Protocol Last Admin: 10/22/16 06:24 Dose: 2 units Losartan Potassium (Cozaar -) 25 mg PO DAILY [facility] Last Admin: 10/21/16 10:59 Dose: Not Given Metronidazole (Flagyl -) 500 mg PO TID [facility] Last Admin: 10/22/16 06:25 Dose: 500 mg Morphine Sulfate (Morphine Injection -) 2 mg IVPUSH Q4H PRN PRN Reason: PAIN Last Admin: 10/22/16 06:30 Dose: 2 mg Trazodone HCl (Desyrel -) 50 mg PO HS [facility] Last Admin: 10/21/16 22:07 Dose: 50 mg - Objective Vital Signs: Vital Signs Temperature 98 F 10/22/16 06:55 Pulse Rate 66 10/22/16 06:55 Respiratory Rate 20 10/22/16 06:55 Blood Pressure 95/76 10/22/16 06:55 O2 Sat by Pulse Oximetry (%) 98 10/21/16 21:00 Constitutional: Yes: Well Nourished, No Distress Respiratory: Yes: WNL, Regular, CTA Bilaterally Gastrointestinal: Yes: WNL, Normal Bowel Sounds, Soft Extremities: Yes: Other (Mild induration left thigh minimal drainage on dressing over night minimal tenderness not like before) Labs: CBC, BMP 10/22/16 06:00 INR, PTT INR 1.21 (0.82-1.09) H 10/20/16 02:47 Problem List - Problems (1) Diabetes Code(s): E11.9 - TYPE 2 DIABETES MELLITUS WITHOUT COMPLICATIONS (2) Skin abscess Code(s): L02.91 - CUTANEOUS ABSCESS, UNSPECIFIED Assessment/Plan Microbiology 10/20/16 10:47 Thigh - Left Gram Stain - Final 10/20/16 10:47 Thigh - Left Wound Culture - Preliminary Staphylococcus Coagulase Neg Staphylococcus Coagulase Neg#2 10/20/16 02:50 Blood - Peripheral Venous Blood Culture - Preliminary NO GROWTH OBTAINED AFTER 48 HOURS, INCUBATION TO CONTINUE FOR 3 DAYS. 10/20/16 02:47 Blood - Peripheral Venous Blood Culture - Preliminary NO GROWTH OBTAINED AFTER 48 HOURS, INCUBATION TO CONTINUE FOR 3 DAYS. Laboratory Tests 10/22/16 06:00 WBC 7.0 Hgb 10.5 L Plt Count 298 Assessment Diabetic wound infection ( foul smelling mentioned) SCN only from wound Plan Consider Augmentin 875 mg bid for 5-7 days Out patient follow up Wound c/s still pending Janet CARBALLO
[2016-10-22] MEDS: DULoxetine HCL 30 MG CAPSULE.DR (FP) PO SCH (11:49)
[2016-10-22] MEDS: BACITRACIN 30 GM TUBE TOPICAL OINTMENT TP SCH (11:50)
[2016-10-22] MEDS: GABAPENTIN 400 MG CAPSULE (FP) PO SCH (11:51)
[2016-10-22] MEDS: LOSARTAN POTASSIUM 25 MG TABLET PO SCH (11:51)
[2016-10-22] MEDS: VANCOMYCIN 1,250 MG in DEXTROSE 5%-WATER - 250 ML IVPB SCH (11:52)
[2016-10-22 12:49] VITALS: BP 115/67
[2016-10-22 15:26] VITALS: PULSE 74; TEMP 98.2
--- NOTE | 2016-10-22 16:48 | DS ---
Physical Exam: SUBJECTIVE: Patient said she's in good spirits, feeling great, able to shower, walk and do everything by herself now, ready to go home. OBJECTIVE: Vital Signs Period Temp Pulse Resp BP Sys/Keller Pulse Ox Last 24 Hr 98 F-98.8 F 66-78 18-20 95-115/61-76 98-98 PHYSICAL EXAM GENERAL: AAO x 3, no distress NECK: No JVD, mass or lymphadenopathy LUNGS: CTAB HEART: RRR, S1, S2 without murmur, rub or gallop. ABDOMEN: Soft, non-tender, nondistended, normoactive bowel sounds, no guarding, no rebound, EXTREMITIES: 2+ pulses, no edema. L inner thigh dressing in place, no erythema, slightly tender to touch, no crepitus, induration, or mass LABS Laboratory Results - last 24 hr 10/21/16 10/21/16 10/22/16 18:15 22:11 06:00 WBC 7.0 RBC 3.39 L Hgb 10.5 L Hct 32.1 L MCV 94.7 MCHC 32.6 RDW 15.9 H Plt Count 298 MPV 9.2 POC Glucometer 338 314 10/22/16 10/22/16 06:02 11:55 WBC RBC Hgb Hct MCV MCHC RDW Plt Count MPV POC Glucometer 168 225 HOSPITAL COURSE: Date of Admission:10/20/16 46 yo F admitted to med-surg for L thigh cellulitis with abscess. CTA of L leg on 10/20 showed mid thigh cellulitis with developing abscess. Bedside drainage scheduled and antibiotics were started ( vanco and zosyn ) and wound cultures were also taken. Morphine was given for pain control. I&d was done the next day with 30 ml aneorobic pus expressed. Patient stable overnight without fever or wbc next day labs. Patient recovered quickly and now stable condition to be discharged home and continue oral antibiotics treatment and wound care. Wound care instruction was given. Antibiotics, ibuprofen and wound care supplies were sent to her pharmacy. She's instructed to follow up with her primary doctor and surgeon as needed. Date of Discharge: 10/22/16 Minutes to complete discharge: 35 Discharge Summary Reason For Visit: SKIN ABSCESS THIGH DIABETES Current Active Problems Cellulitis (Acute) Skin abscess (Acute) Diabetes (Chronic) Condition: Improved - Instructions Diet, Activity, Other Instructions: Instruction for continuing care: You were admitted to the hospital because you had an abscess and skin infection of your L thigh. The surgeon came and drained the abscess and you were treated with antibiotics accordingly. You are now in stable condition to be discharged home. Here is the list of things you need to do: 1. Take augmentin for 7 days 2. Follow up with your primary doctor and the surgeon 3. shower with soap and water in the wound twice a day and apply dry dressing until the wound is healed Referrals: Kayli Magana MD [Staff Physician] - Shanell Joseph [Primary Care Provider] - Denton Kelly MD [Staff Physician] - Disposition: HOME - Home Medications Comprehensive Discharge Medication List: Ambulatory Orders Metformin HCl 1,000 mg PO BIDAC 04/18/15 Duloxetine HCl [Cymbalta -] 60 mg PO DAILY 10/20/16 Gabapentin [Neurontin -] 800 mg PO BID 10/20/16 Insulin Lispro [Humalog] 6 unit SQ .TIDAC PRN 10/20/16 Losartan Potassium 25 mg PO DAILY 10/20/16 Oxycodone HCl 30 mg PO BID 10/20/16 Simvastatin [Zocor -] 20 mg PO HS 10/20/16 Trazodone HCl 50 mg PO HS 10/20/16 Trulicity 70 mg PO DAILY 10/20/16 Amox-Tr/K Cl [Augmentin - 875Mg Tablet] 1 tab PO BID #14 tablet 10/22/16 Bacitracin 30 gm TP BID #1 oint...g. 10/22/16 Gauze Bandage [Gauze Dressing] 1 each TP BID #20 bandage 10/22/16 Ibuprofen 800 mg PO TID #21 tablet 10/22/16 This patient is new to me today: No Emergency Visit: No Critical Care patient: No - Discharge Referral Referred to [facility] No
--- NOTE | 2016-10-22 17:25 | PN ---
Teaching Attending Note Name of Resident: Ike Lema ATTENDING PHYSICIAN STATEMENT I saw and evaluated the patient. I reviewed the resident's note and discussed the case with the resident. I agree with the resident's findings and plan as documented. SUBJECTIVE: No complaints. OBJECTIVE: Vital Signs Period Temp Pulse Resp BP Sys/Keller Pulse Ox Last 24 Hr 98 F-98.8 F 66-78 18-20 95-115/61-76 98-98 HEART: S1 S2, RRR LUNGS: CLEAR ABDOMEN: Obese, soft, non-tender, non-distended, normal BS EXTREMITIES: No edema, dressing on left medial thigh ASSESSMENT AND PLAN: This is a 46-year-old woman with a history of type 2 DM, chronic back pain and obesity who presented to the ER with a draining abscess of her left thigh. 1. Left thigh abscess - s/p I&D 10/20 - Wound culture growing coagulase negative Staph - Discharge on Augmentin 2. Type 2 DM, uncontrolled - Continue Novolog sliding scale 3. Chronic back pain
== END 2016-10-22 17:11 | disposition home or self-care (01) | DRG 383 ==
LOC: JER 00:42 → JERBED 04:06 → J8W 06:35
PROVIDERS: ADMIT Internal Medicine; ATTEND Internal Medicine
PROC: 0Y9B0ZZ Drainage of Left Lower Extremity, Open Approach (ICD-10-PCS; principal; 2016-10-20)
DX: L02.416 Cutaneous abscess of left lower limb (principal); L03.116 Cellulitis of left lower limb; B95.7 Other staphylococcus as the cause of diseases classified elsewhere; E66.9 Obesity, unspecified; Z68.31 Body mass index [BMI] 31.0-31.9, adult; Z71.3 Dietary counseling and surveillance; M54.9 Dorsalgia, unspecified; E11.65 Type 2 diabetes mellitus with hyperglycemia; Z79.84 Long term (current) use of oral hypoglycemic drugs; F17.210 Nicotine dependence, cigarettes, uncomplicated; L73.2 Hidradenitis suppurativa; R71.0 Precipitous drop in hematocrit
CPT/HCPCS: 36415; 71010-TC; 73706-TC-RT; 80053; 81003; 81015; 82436; 83036; 83605; 84133; 84300; 84703; 85025; 85027; 85610; 85651; 85730; 86140; 86850; 86900; 86901; 87040; 87070; 87205; 87389; 93005; 93010; 99283-25